=== PATIENT | male | born 1985 | race Caucasian/White ===

== ENCOUNTER 2020-01-19 15:46 | Emergency (ER) | payer BC, OTHER ==
[~2020-01-19] VITALS: Ht 188 cm; Wt 77.3 kg
[2020-01-19 16:01] LABS: COVID AG,FIA SOURCE NASOPHARYNGEAL
[2020-01-19 16:11] VITALS: BP 128/79
== END 2020-01-19 16:16 | disposition home or self-care (01) ==
LOC: EMS 15:49
DX: B34.9 Viral infection, unspecified (principal); M79.10 Myalgia, unspecified site; R05 Cough; F12.90 Cannabis use, unspecified, uncomplicated; Z20.828 Contact with and (suspected) exposure to other viral communicable diseases
CPT/HCPCS: 87426; 99283; C9803; U0003